=== PATIENT | female | born 1980 | race Caucasian/White ===

== ENCOUNTER 2018-03-21 02:02 | Emergency (ER) | payer OTHER ==
[2018-03-21 02:50] VITALS: O2SAT 98
--- NOTE | 2018-03-21 03:02 | ERPHSYRPT ---
- History of Present Illness Time Seen by Provider: 03/21/18 02:58 Historian: patient, family Exam Limitations: no limitations Patient Subjective Stated Complaint: Pain in upper and lower right quadrants of abdomen and pain during urination Triage Nursing Assessment: Pt A&O x3, pain in upper and lower right side quadrants of abdomen, denies pain with palpation, pain during urination, temp 100.2, BP 155/107, denies flank pain, some nausea, denies vomiting, doesn't appear to be in any distress Physician History: pt had pain onset this evening with fever and painful urination - no vomiting- no discharge abd is nontender without peritoneal signs or masses. no cough . Timing/Duration: today Activities at Onset: none Quality: sharpness, stabbing Abdominal Pain Onset Location: RUQ, flank Pain Radiation: groin Severity of Pain-Max: moderate Severity of Pain-Current: moderate Associated Symptoms: fever/chills, other (urinary symptoms) Previous symptoms: no prior history Allergies/Adverse Reactions: No Known Drug Allergies Allergy (Verified 03/21/18 02:51) Home Medications: Tranexamic Acid 1,300 mg PO TID 03/21/18 [History] - Review of Systems Constitutional: Fever, No Chills Eyes: No Symptoms Ears, Nose, & Throat: No Symptoms Respiratory: No Cough, No Dyspnea Cardiac: No Chest Pain, No Edema, No Syncope Abdominal/Gastrointestinal: Abdominal Pain, No Nausea, No Vomiting, No Diarrhea Genitourinary Symptoms: Dysuria, Urgency, Flank Pain Musculoskeletal: No Back Pain, No Neck Pain Skin: No Rash Neurological: No Dizziness, No Focal Weakness, No Sensory Changes Psychological: No Symptoms Endocrine: No Symptoms All Other Systems: Reviewed and Negative - Past Medical History Pertinent Past Medical History: Yes - Past Surgical History Past Surgical History: Yes Female Surgical History: Section, Tubal Ligation - Social History Smoking Status: Former smoker Exposure to second hand smoke: No Drug Use: none Patient Lives Alone: No - Female History Hx Last Menstrual Period: 03/14/2018 Hx Now: No - Nursing Vital Signs Nursing Vital Signs: Initial Vital Signs Temperature 100.2 F 03/21/18 02:35 Pulse Rate 94 H 03/21/18 02:35 Blood Pressure 155/107 03/21/18 02:35 O2 Sat by Pulse Oximetry 98 03/21/18 02:35 Pain Scale Pain Intensity 4 - Physical Exam General Appearance: no apparent distress, alert Eye Exam: PERRL/EOMI, eyes nml inspection Ears, Nose, Throat Exam: normal ENT inspection, pharynx normal, moist mucous membranes Neck Exam: normal inspection, non-tender, supple, full range of motion Respiratory Exam: normal breath sounds, lungs clear, No respiratory distress Cardiovascular Exam: regular rate/rhythm, normal heart sounds Gastrointestinal/Abdomen Exam: soft, No tenderness, No mass Back Exam: normal inspection, normal range of motion, No CVA tenderness, No vertebral tenderness Extremity Exam: normal inspection, normal range of motion, pelvis stable Neurologic Exam: alert, oriented x 3, cooperative, normal mood/affect, nml cerebellar function, sensation nml, No motor deficits Skin Exam: normal color, warm, dry SpO2 Interpretation: normal SpO2: 98 Oxygen Delivery: Room Air - Course Nursing assessment & vital signs reviewed: Yes - CT Exams Abdomen/Pelvis CT Interpretation: Tele-radiologist Report, No appendicitis, Other (right hydronephrosis and ureteral stranding consistent with stone; ) Ordered Tests: Active Orders 24 hr Category Date Time Status Clean Catch Urine Specimen STAT Care 03/21/18 02:53 Active IV Insertion STAT Care 03/21/18 02:53 Active NPO (ED) STAT Care 03/21/18 02:53 Active ABDOMEN AND PELVIS W/0 CONTRAS [CT] Stat Exams 03/21/18 02:53 Taken AMYLASE Stat Lab 03/21/18 03:10 Completed CBC W DIFF Stat Lab 03/21/18 03:10 Completed CMP Stat Lab 03/21/18 03:10 Completed HCG QUALITATIVE,SERUM Stat Lab 03/21/18 03:10 Completed LIPASE Stat Lab 03/21/18 03:10 Completed Lactic Acid Stat Lab 03/21/18 02:53 Results UA W/RFX UR CULTURE Stat Lab 03/21/18 04:00 Received Medication Summary Discontinued Medications Generic Name Dose Route Start Last Admin Trade Name Freq PRN Reason Stop Dose Admin Acetaminophen 650 mg 03/21/18 04:24 03/21/18 04:45 Tylenol Extra Strength 500 Mg PO 03/21/18 04:25 Not Given STAT STA Acetaminophen Confirm 03/21/18 04:32 Tylenol 325 Mg Administered 03/21/18 04:33 Dose 650 mg .ROUTE .STK-MED ONE Acetaminophen 650 mg 05/28/18 04:44 03/21/18 04:45 Tylenol 325 Mg PO 03/21/18 04:45 650 mg STAT STA Administration Sodium Chloride 1,000 mls @ 999 mls/hr 03/21/18 02:53 03/21/18 03:20 Sodium Chloride 0.9% 1000 Ml IV 03/21/18 03:53 999 mls/hr .Q1H1M STA Administration Ceftriaxone Sodium/Dextrose 1 g in 50 mls @ 100 mls/hr 03/21/18 02:55 03:20 Rocephin 1 Gm-D5w 50 Ml Bag IV 03/21/18 03:24 100 mls/hr STAT STA Administration Sodium Chloride Confirm 03/21/18 03:19 Sodium Chloride 0.9% 1000 Ml Administered 03/21/18 03:20 Dose 1,000 mls @ ud .ROUTE .STK-MED ONE Ceftriaxone Sodium/Dextrose Confirm 03/21/18 03:19 Rocephin 1 Gm-D5w 50 Ml Bag Administered 03/21/18 03:20 Dose 1 g in 50 mls @ ud IV .STK-MED ONE Lab/Rad Data: Laboratory Result Diagrams 03/21/18 03:10 03/21/18 03:10 Laboratory Results 03/21/18 03/21/18 03/21/18 Range/Units 03:10 03:10 03:10 WBC 14.6 H (4.0-10.5) K/mm3 RBC 4.74 (4.1-5.4) M/mm3 Hgb 13.2 (12.0-16.0) gm/dl Hct 41.0 (35-47) % MCV 86.5 (78-100) fl MCH 27.8 (26-32) pg MCHC 32.2 (32-36) g/dl RDW 13.7 (11.5-14.0) % Plt Count 207 (150-450) K/mm3 MPV 11.7 H (6-9.5) fl Gran % 79.6 H (36.0-66.0) % Eos # (Auto) 0.15 (0-0.5) Absolute Lymphs (auto) 1.36 (1.0-4.6) Absolute Monos (auto) 1.47 H (0.0-1.3) Lymphocytes % 9.3 L (24.0-44.0) % Monocytes % 10.0 (0.0-12.0) % Eosinophils % 1.0 (0.00-5.0) % Basophils % 0.1 (0.0-0.4) % Absolute Granulocytes 11.64 H (1.4-6.9) Basophils # 0.02 (0-0.4) Sodium 140 (137-145) mmol/L Potassium 4.5 (3.5-5.1) mmol/L Chloride 106 (98-107) mmol/L Carbon Dioxide 27 (22-30) mmol/L Anion Gap 11.8 (5-15) MEQ/L BUN 13 (7-17) mg/dL Creatinine 0.69 (0.52-1.04) mg/dL Estimated GFR > 60.0 ML/MIN Glucose 117 H (74-106) mg/dL Lactic Acid (0.4-2.0) Calcium 9.2 (8.4-10.2) mg/dL Total Bilirubin 0.30 (0.2-1.3) mg/dL AST 32 (14-36) U/L ALT 33 (0-35) U/L Alkaline Phosphatase 106 (38-126) U/L Serum Total Protein 7.3 (6.3-8.2) g/dL Albumin 4.1 (3.5-5.0) g/dL Amylase 69 (30-110) U/L Lipase 65 (23-300) U/L Serum , Qual NEGATIVE (Negative) 03/21/18 Range/Units 02:53 WBC (4.0-10.5) K/mm3 RBC (4.1-5.4) M/mm3 Hgb (12.0-16.0) gm/dl Hct (35-47) % MCV (78-100) fl MCH (26-32) pg MCHC (32-36) g/dl RDW (11.5-14.0) % Plt Count (150-450) K/mm3 MPV (6-9.5) fl Gran % (36.0-66.0) % Eos # (Auto) (0-0.5) Absolute Lymphs (auto) (1.0-4.6) Absolute Monos (auto) (0.0-1.3) Lymphocytes % (24.0-44.0) % Monocytes % (0.0-12.0) % Eosinophils % (0.00-5.0) % Basophils % (0.0-0.4) % Absolute Granulocytes (1.4-6.9) Basophils # (0-0.4) Sodium (137-145) mmol/L Potassium (3.5-5.1) mmol/L Chloride (98-107) mmol/L Carbon Dioxide (22-30) mmol/L Anion Gap (5-15) MEQ/L BUN (7-17) mg/dL Creatinine (0.52-1.04) mg/dL Estimated GFR ML/MIN Glucose (74-106) mg/dL Lactic Acid 2.2 H (0.4-2.0) Calcium (8.4-10.2) mg/dL Total Bilirubin (0.2-1.3) mg/dL AST (14-36) U/L ALT (0-35) U/L Alkaline Phosphatase (38-126) U/L Serum Total Protein (6.3-8.2) g/dL Albumin (3.5-5.0) g/dL Amylase (30-110) U/L Lipase (23-300) U/L Serum , Qual (Negative) - Progress Progress: improved, re-examined Progress Note: 03/21/18 04:57 pt has improvement of pain with near resolution . clinically pt appears well and has no abd fingins still with repeat exam. pt advised of limitations of testing and that undetected pathology may still be evolving including potentially serious infections. pt choses DC with outpt f/u with PCP to further eval here or as inpt. Counseled pt/family regarding: lab results, diagnosis, need for follow-up, rad results - Departure Time of Disposition: 05:11 Departure Disposition: Home Clinical Impression: Abdominal pain of unknown cause, renal hydronephrosis, UTI (urinary tract infection) Condition: Good Critical Care Time: No Referrals: NINFA HANCOCK [Primary Care Provider] - Instructions: Hydronephrosis in Adults, Kidney Stones in Adults, Acute Abdomen (Belly Pain), Adult (DC), Urinary Tract Infection, Adult (DC), Kidney Infection (DC) Additional Instructions: ALthough we have found a urinary infection , and signs of kidney stone , there may be other causes for your pain and fever , so you should continue to observe for any other symptoms and followup with your dr to recheck your urine and white blood cell count ( which is elevated) and see a urologist for your kidney condition which may be due to stones. Strain your urine for stones. return meantime if not improving or other symptoms of concern. Prescriptions: Levofloxacin [Levaquin] 500 mg PO DAILY #7 tablet
[2018-03-21] MEDS ORDERED: Sodium Chloride 0.9% 1000 ML 1,000 ML ONE (03:19)
[2018-03-21] MEDS ORDERED: ROCEPHIN 1 Gm-D5w 50 ml Bag** 1 G/50 ML IVPB IV ONE (03:19)
[2018-03-21] MEDS: Sodium Chloride 0.9% 1000 ML 1,000 ML IV STA (03:20)
[2018-03-21] MEDS: ROCEPHIN 1 Gm-D5w 50 ml Bag** 1 G/50 ML IVPB IV STA (03:20)
[2018-03-21 03:29] LABS: Lactic Acid 2.2 (0.4-2.0)
[2018-03-21 03:36] LABS: BASOPHIL % 0.1 % (0.0-0.4); Basophil (Absolute #) 0.02 (0-0.4); Eosinophil (Absolute #) 0.15 (0-0.5); Granulocyte Absolute (ANC) 11.64 (1.4-6.9); Granulocytes % 79.6 % (36.0-66.0); Hemoglobin 13.2 gm/dl (12.0-16.0); Lymphocyte (Absolute #) 1.36 (1.0-4.6); Lymphocytes % 9.3 % (24.0-44.0); Mean Cell Volume 86.5 fl (78-100); Mean Corpuscular Hemoglobin 27.8 pg (26-32); Mean Corpuscular Hgb Concent. 32.2 g/dl (32-36); Mean Platelet Volume 11.7 fl (6-9.5); Monocyte (Absolute #) 1.47 (0.0-1.3); Platelet Count 207 K/mm3 (150-450); Red Blood Count 4.74 M/mm3 (4.1-5.4); Red Cell Distribution Width 13.7 % (11.5-14.0); White Blood Count 14.6 K/mm3 (4.0-10.5)
[2018-03-21 03:53] LABS: ALBUMIN 4.1 g/dL (3.5-5.0); ALKALINE PHOSPHATASE 106 U/L (38-126); AMYLASE 69 U/L (30-110); ANION GAP 11.8 MEQ/L (5-15); BLOOD UREA NITROGEN 13 mg/dL (7-17); CHLORIDE 106 mmol/L (98-107); Calcium 9.2 mg/dL (8.4-10.2); Carbon Dioxide 27 mmol/L (22-30); Creatinine 1 0.69 mg/dL (0.52-1.04); Glucose 117 mg/dL (74-106); LIPASE 65 U/L (23-300); Potassium 4.5 mmol/L (3.5-5.1); SGOT/AST 32 U/L (14-36); SGPT/ALT 33 U/L (0-35); SODIUM 140 mmol/L (137-145); Total Protein 7.3 g/dL (6.3-8.2)
[2018-03-21] MEDS ORDERED: TYLENOL 325 MG ONE (04:32)
[2018-03-21] MEDS: TYLENOL EXTRA STRENGTH 500 MG PO STA (04:45)
[2018-03-21] MEDS: TYLENOL 325 MG PO STA (04:45)
[2018-03-21 05:00] LABS: Appearance CLEAR (CLEAR); Bilirubin NEGATIVE (NEGATIVE); Blood 50 Ery/ul (0-5); Glucose NEGATIVE (NEGATIVE); Ketones NEGATIVE (NEGATIVE); Leukocyte Esterase 1+ (NEGATIVE); Nitrite POSITIVE (NEGATIVE); Protein,Urine Dip TRACE (Negative); Urobilinogen NORMAL mg/dL (0-1)
[2018-03-21 05:10] LABS: Bacteria FEW /HPF (NEGATIVE); Epithelial Cells FEW /HPF (FEW); WBC 25-50 /HPF (0-5)
[2018-03-21 05:32] VITALS: BP 136/89; PULSE 82
--- NOTE | 2018-03-21 07:21 | XRAY ---
Indication: Right flank pain. Multiple contiguous axial images obtained through the abdomen and pelvis without contrast as ordered. Comparison: None Lung bases demonstrates mild bibasilar dependent atelectasis. No infiltrate or effusion. Heart is not enlarged. Small hiatal hernia. Noncontrasted stomach and bowel loops appear nonobstructed. Normal appendix. Scattered small subcentimeter mesenteric nodes with minimal stranding favoring adenitis. No free fluid/air. Mild diffuse fatty liver. Borderline splenomegaly measuring 12.5 cm in greatest axial dimension. Remaining liver, gallbladder, pancreas, spleen, adrenal glands, kidneys, ureters, bladder, uterus, and aorta appear unremarkable for noncontrast exam. Osseous structures intact. Moderate size fatty umbilical hernia. Impression: 1. Small hiatal hernia and moderate fatty umbilical hernia. 2. Scattered small mesenteric nodes with minimal stranding favoring adenitis. 3. Mild fatty liver and borderline splenomegaly. 4. No acute intra-abdominal/pelvic abnormalities on this noncontrast exam. Comment: Preliminary interpretation was made by [facility]. No critical discrepancy. CTDI 23.68
== END 2018-03-21 05:23 | disposition home or self-care (01) ==
LOC: ED 02:02
DX: R10.9 Unspecified abdominal pain (principal); N13.30 Unspecified hydronephrosis; R10.11 Right upper quadrant pain; R30.9 Painful micturition, unspecified; R50.9 Fever, unspecified; N39.0 Urinary tract infection, site not specified; Z79.899 Other long term (current) drug therapy
CPT/HCPCS: 36000; 36415; 74176; 80053; 81000; 82150; 83605; 83690; 84703; 85025; 87086; 96360; 96365; 99284; J0696; A9270-GY